=== PATIENT | male | born 1980 | race Caucasian/White ===

== ENCOUNTER 2018-10-04 02:54 | Emergency (ER) | payer OTHER, MEDICAID, SELFPAY ==
[2018-10-04 03:04] VITALS: BP 197/138; PULSE 104; RESP 20; TEMP 36.3; O2SAT 96
--- NOTE | 2018-10-04 03:37 | ED_ITS ---
HPI - URI/Sore Throat General Chief Complaint: Upper Respiratory Symptoms Stated Complaint: Swollen throat, headache Time Seen by Provider: 10/04/18 03:13 Source: patient and old records reviewed Mode of arrival: ambulatory Limitations: no limitations History of Present Illness HPI Narrative: Patient is a 38-year-old male with history of diabetes, hypertension and noncompliance presents with of throat swelling and pain. He was seen and evaluated at [facility] on 09/17/2018 where he was given a shot of Rocephin and Decadron for peritonsillar abscess. He also was given prescription for blood pressure and diabetes medication which he did not fill. He said his throat actually got better and till just today when the swelling got worse. It now hurts to swallow he is able to do so he does have a slightly muffled voice. He is noted to be quite hypertensive in the ED. He has no abdominal pain nausea vomiting. No fever. MD Complaint: sore throat Related Data Home Medications Medication Instructions Recorded Confirmed albuterol sulfate [Ventolin HFA] #0 12/14/16 acetaminophen 650 mg PO Q8HP PRN #0 12/16/16 Previous Rx's Medication Instructions Recorded lisinopril 20 mg PO QDAY #20 tab 12/14/16 metformin [Glucophage] 500 mg PO BIDCC #30 tab 12/14/16 pldnjnsriv-zqkarsnmztwoi-zuqe 0 tab PO Q4HP PRN #10 tab 12/16/16 albuterol sulfate 1 puff INHALATION Q4-6H PRN #8.5 10/04/18 gram amoxicillin-pot clavulanate 10 ml PO Q12H 10 Days #200 ml 10/04/18 lisinopril 20 mg PO DAILY #30 tab 10/04/18 metformin 500 mg PO BID #30 tab 10/04/18 prednisolone 45 mg PO DAILY #180 ml 10/04/18 Allergies Allergy/AdvReac Type Severity Reaction Status Date / Time No Known Allergies Allergy Uncoded 10/02/17 13:11 Review of Systems Review of Systems ROS Unobtainable: All systems reviewed & are unremarkable except as noted in HPI and below Constitutional Denies chills, Denies fever(s), Denies lethargy and Denies weakness ENT Ears, Nose, Mouth, and Throat: Reports as per HPI Cardiovascular Denies chest pain, Denies irregular heart rhythm, Denies lightheadedness, Denies palpitations, Denies dyspnea, Denies dyspnea on exertion and Denies orthopnea Respiratory Denies cough, Denies dyspnea, Denies dyspnea on exertion and Denies wheezing Gastrointestinal Gastrointestinal: Denies abdominal pain, Denies change in bowel habits, Denies diarrhea, Denies nausea and Denies vomiting Genitourinary Denies hematuria, Denies flank pain, Denies urinary incontinence and Denies urinary urgency Musculoskeletal Denies back pain, Denies muscle weakness, Denies numbness and Denies tingling Integumentary/Breasts Denies pruritus, Denies erythema, Denies rash and Denies wounds Neurologic Denies confusion, Denies numbness, Denies tingling and Denies weakness Psychiatric Denies anxiety, Denies confusion, Denies depression, Denies homicidal ideation and Denies suicidal ideation Endocrine Denies palpitations Allergic/Immunologic Denies wheezing [facility] Medical History Diabetes (Acute) Hypertension (Acute) Social History Smoking Status: Current every day smoker Social History Smoking Status: Current every day smoker Exam Initial Vital Signs Initial Vital Signs: Vital Signs Temperature 97.3 F L 10/04/18 03:04 Pulse Rate 104 H 10/04/18 03:04 Respiratory Rate 20 10/04/18 03:04 Blood Pressure 197/138 H 10/04/18 03:04 Pulse Oximetry 96 10/04/18 03:04 GENERAL: Disheveled overweight male no acute distress HEENT: Head atraumatic,EOMI, pupils reactive, neck is supple mild right-sided cervical lymphadenopathy PHARYNX: Erythematous with right sided swelling with right uvula deviation airway is patent managing own secretion, muffled voice no tonsillar exudate CARDIOVASCULAR: Regular rate and rhythm without murmurs, rubs or gallops. RESPIRATORY: Breath sounds equal bilaterally, no wheezes rales or rhonchi. ABDOMEN: Soft, nontender. Normoactive bowel sounds all 4 quadrants. No guarding or rebound. EXTREMITIES: Normal range of motion, no clubbing or edema. Neurovascularly intact NEUROLOGICAL: Alert and oriented x4.Normal gait and speech. Cranial nerves II through XII grossly intact. SKIN: Warm, dry, no laceration, no petechiae, no rashes or lesions. Procedures Abscess I/D Site: other (Right peritonsillar) Side (if applicable): right Local Anesthetic: lidocaine 1%, with epi and other anesthetic (Cetacaine) Amount of anesthesia used (mL): 2 Technique: needle aspiration Amount of fluid expressed (mL): 0 Irrigation: No Packing used?: none Complications: bleeding Course Orders Ordered: ED Orders 10/04/18 03:40 Complete Blood Count AUTO DIFF Stat Comprehensive Metabolic Panel Stat Lactate (Lactic Acid) Stat 10/04/18 03:57 Blood Culture Stat Discontinued Medications Dexamethasone (Decadron) 10 mg IV NOW ONE Stop: 10/04/18 03:19 Last Admin: 10/04/18 03:46 Dose: 10 mg Ampicillin Sodium/Sulbactam (Sodium 3 gm/ Sodium Chloride) 100 mls @ 100 mls/hr IV NOW ONE Stop: 10/04/18 03:19 Last Infusion: 10/04/18 05:41 Dose: 0 mls/hr Admin: 10/04/18 04:07 Dose: 100 mls/hr Sodium Chloride (Normal Saline 0.9%) 1,000 mls @ 1,000 mls/hr IV BOLUS ONE Stop: 10/04/18 04:17 Last Admin: 10/04/18 03:46 Dose: 1,000 mls/hr Lorazepam (Ativan) 0.5 mg IV NOW ONE Stop: 10/04/18 04:31 Last Admin: 10/04/18 04:35 Dose: 0.5 mg Vital Signs - 8 hr 10/04/18 03:04 Temperature 97.3 F L Pulse Rate 104 H Respiratory Rate 20 Blood Pressure 197/138 H Pulse Oximetry 96 MDM - URI/Sore Throat Lab Data Attestation: I reviewed the patient's lab results. Result diagrams: 10/04/18 03:40 10/04/18 03:40 Lab Results 10/04/18 10/04/18 10/04/18 Range/Units 03:40 03:40 03:40 WBC 17.0 H (4.5-11.0) X10^3/uL RBC 5.48 (4.5-5.9) X10^6/uL Hgb 16.1 (13.5-17.5) g/dL Hct 46.5 (41-53) % MCV 84.7 (80-100) fL MCH 29.4 (26-34) PG MCHC 34.7 (30-36) % RDW 12.9 (11.6-14.8) % Plt Count 378 (150-400) X10^3/uL Neut % (Auto) 78.7 H (50-75) % Lymph % (Auto) 12.2 L (25-40) % [place] % (Auto) 7.6 (3-14) % Eos % (Auto) 0.9 L (2-4) % Baso % (Auto) 0.6 (0-2) % Neut # (Auto) 91738 H (8263-0312) /uL Lymph # (Auto) 2100 (5546-7632) /uL [place] # (Auto) 1300 H (0-900) /uL Eos # (Auto) 200 (0-450) /uL Baso # (Auto) 100 (0-100) /uL Sodium 134 L (137-145) mmol/L Potassium 4.0 (3.4-5.1) mmol/L Chloride 98 (98-107) mmol/L Carbon Dioxide 28 (22-32) mmol/L BUN 15 (9-20) mg/dL Creatinine 0.60 L (0.66-1.25) mg/dL Estimated GFR > 60.0 (>60) mL/min BUN/Creatinine Ratio 25.0 H (6-22) Glucose 242 H (70-100) mg/dL Lactate 1.1 (0.7-2.1) mmol/L Calcium 9.6 (8.4-10.2) mg/dL Total Bilirubin 1.0 (0.2-1.3) mg/dL AST 19 (17-59) IU/L ALT 32 (21-72) IU/L Alkaline Phosphatase 114 (38-126) U/L Total Protein 7.8 (6.3-8.2) g/dL Albumin 4.5 (3.5-5.0) g/dL Globulin 3.3 (1.7-4.1) g/dL Albumin/Globulin Ratio 1.4 (1.0-2.8) MDM Narrative Medical decision making narrative: The patient had recurrent right peritonsillar abscess. He said it went away however it came back. Noncompliant with medications never picked up his antibiotics. Due to his noncompliance decision for at least attempt at peritonsillar I and D. patient did require some Ativan and he was quite nervous. Unfortunately unsuccessful peritonsillar drainage. The patient was sleeping without drooling or respiratory distress U 10 used to have muffled voice. I have discussed with him at significant length that he must fill and take his antibiotics. He says he cannot take pills he can only crushes them. I have given him liquid medications. Discussed very explicit warning signs and when to return to the ED. He understands he says that he will take his antibiotics he can get them they are free. Discharge Plan Departure Patient Disposition: Home Clinical Impression: Abscess, peritonsillar Instructions: Peritonsillar Abscess Activity Restrictions/Additional Instructions: YOU MUST TAKE HER ANTIBIOTICS *You have been diagnosed with peritonsillar abscess on right *What to do: You must fill and take her antibiotics increase fluids *Continue to take medications as directed Augmentin 800 mg twice a day (10mL) Prednisolone 45 mg once a day *Follow up with your primary care provider in 2-3 days, may need to see ENT to have abscess drain call them on Saturday *Return to ER if you should have return to ER immediately if you should have any difficulty breathing increased swelling, unable to swallow your own spit or any new, worsening or concerning symptoms Prescriptions: New amoxicillin-pot clavulanate 400-57 mg/5 mL suspension for reconstitution 10 ml PO Q12H 10 Days Qty: 200 RF: 0 prednisolone 15 mg/5 mL solution 45 mg PO DAILY Qty: 180 RF: 0 albuterol sulfate 90 mcg/actuation HFA aerosol inhaler 1 puff INHALATION Q4-6H PRN (Reason: shortness of breath) Qty: 8.5 RF: 0 metformin 500 mg tablet 500 mg PO BID Qty: 30 RF: 0 lisinopril 20 mg tablet 20 mg PO DAILY Qty: 30 RF: 0 No Action albuterol sulfate [Ventolin HFA] 90 MCG/PUFF HFA aerosol inhaler Qty: 0 RF: 0 metformin [Glucophage] 500 MG tablet 500 mg PO BIDCC Qty: 30 RF: 0 lisinopril 20 MG tablet 20 mg PO QDAY Qty: 20 RF: 0 acetaminophen 650 MG tablet extended release 650 mg PO Q8HP PRNQty: 0 RF: 0 [id number]-aoetaibhmwfvd-xihl 1 EACH tablet PO Q4HP PRNQty: 10 RF: 0 Referrals: Francisco Urbina MD [Physician] -
[2018-10-04 03:45] LABS: Add Manual Diff / Slide Review NO; Basophils Absolute Auto 100 /uL (0-100); Basophils Percent Auto 0.6 % (0-2); Eosinophils Absolute Auto 200 /uL (0-450); Eosinophils Percent Auto 0.9 % (2-4); Hematocrit 46.5 % (41-53); Hemoglobin 16.1 g/dL (13.5-17.5); Lymphocytes Absolute Auto 2100 /uL (1100-4500); Lymphocytes Percent Auto 12.2 % (25-40); Mean Corpuscular HGB Conc 34.7 % (30-36); Mean Corpuscular Hemoglobin 29.4 PG (26-34); Mean Corpuscular Volume 84.7 fL (80-100); Monocytes Absolute Auto 1300 /uL (0-900); Monocytes Percent Auto 7.6 % (3-14); Neutrophils Absolute Auto 13400 /uL (1500-7000); Neutrophils Percent Auto 78.7 % (50-75); Platelet Count 378 X10^3/uL (150-400); Red Blood Cell Count 5.48 X10^6/uL (4.5-5.9); Red Cell Distribution Width 12.9 % (11.6-14.8)
[2018-10-04] MEDS: DEXAMETHASONE 10 MG/ML VIAL IV (03:46)
[2018-10-04] MEDS: SODIUM CHLORIDE 0.9% 1,000 ML 1000 ML IV (03:46)
[2018-10-04 03:54] LABS: Lactate (Lactic Acid) 1.1 mmol/L (0.7-2.1)
[2018-10-04 03:55] LABS: Alanine Aminotransferase 32 IU/L (21-72); Albumin 4.5 g/dL (3.5-5.0); Albumin Globulin Ratio 1.4 (1.0-2.8); Alkaline Phosphatase 114 U/L (38-126); Aspartate Aminotransferase 19 IU/L (17-59); Blood Urea Nitrogen 15 mg/dL (9-20); Calcium 9.6 mg/dL (8.4-10.2); Carbon Dioxide 28 mmol/L (22-32); Chloride 98 mmol/L (98-107); Estimated Glomerular Filt Rate > 60.0 mL/min (>60); Globulin 3.3 g/dL (1.7-4.1); Glucose 242 mg/dL (70-100); HEMOLYSIS < 15 (0-50); Sodium 134 mmol/L (137-145); Total Protein 7.8 g/dL (6.3-8.2)
[2018-10-04] MEDS: AMPICILLIN/SULBACTAM 3 GM 3 GM in SODIUM CHLORIDE 0.9% 100 ML IV (04:07)
[2018-10-04] MEDS: LORazepam 2 MG/ML SYRINGE 0.5 MG IV (04:35)
[2018-10-04 06:08] VITALS: BP 174/131; PULSE 107; RESP 18; TEMP 37.1; O2SAT 98
--- NOTE | 2018-10-18 19:27 | PC.NURSE ---
Late Entry NS IV stop time 10/04/18 0500. Total volume infused 1000ml.
== END 2018-10-04 06:19 | disposition home or self-care (01) ==
PROVIDERS: Emergency Provider Emergency Medicine; Family Provider Family Medicine
DX: J36 Peritonsillar abscess (principal); R51 Headache
CPT/HCPCS: 36415; 36591; 42700; 80053; 83605; 85025; 87040; 96361; 96365; 96366; 96375; 99283; 99284; J0295; J1100; J2060

== ENCOUNTER 2022-03-12 16:48 | Emergency (ER) | payer OTHER, MEDICAID, SELFPAY ==
[2022-03-12 16:49] VITALS: BP 190/94; PULSE 99; RESP 18; TEMP 36.6; O2SAT 97
--- NOTE | 2022-03-12 17:27 | ED_ITS ---
HPI - Recheck/Abnormal Lab/Rx General Chief Complaint: Recheck/Abnormal Lab/Rx Stated Complaint: Out of diabetes medication not feeling well Time Seen by Provider: 03/12/22 17:24 Source: patient Mode of arrival: Ambulatory Limitations: no limitations History of Present Illness HPI narrative: Patient is a 41-year-old male. Is a diabetic and also hypertensive. Just recently established care with a new primary doctor but is yet to see this provider. He is currently out of his medications and is generally not feeling very well. The last time they were filled was at the walk-in clinic in [place]. He was told that he could not return there to get these medicines feel that he needed to do it from a primary provider so he came to this emergency department to have his medicine filled. Related Data Home Medications Medication Instructions Recorded Confirmed albuterol sulfate 90 mcg/actuation ##0 12/14/16 aerosol inhaler (Ventolin HFA) acetaminophen 650 mg 650 mg PO Q8HP PRN ##0 12/16/16 tablet,extended release Previous Rx's Medication Instructions Recorded lisinopril 20 mg tablet 20 mg PO QDAY #20 tabs 12/14/16 metformin 500 mg tablet 500 mg PO BIDCC #30 tabs 12/14/16 (Glucophage) zycubzfjep-hpiluacyinucx-gbjtvfaw 0 tab PO Q4HP PRN #10 tabs 12/16/16 50 mg-325 mg-40 mg tablet albuterol sulfate 90 mcg/actuation 1 puff inhalation Q4-6H PRN 10/04/18 aerosol inhaler shortness of breath #8.5 grams lisinopril 20 mg tablet 20 mg PO DAILY #30 tabs 10/04/18 metformin 500 mg tablet 500 mg PO BID #30 tabs 10/04/18 prednisolone 15 mg/5 mL oral 45 mg (15 mL) PO DAILY #180 mL 10/04/18 solution glimepiride 4 mg tablet 4 mg PO DAILY #30 tabs 03/12/22 lisinopril 20 mg tablet 20 mg PO DAILY #30 tabs 03/12/22 Allergies Allergy/AdvReac Type Severity Reaction Status Date / Time No Known Allergies Allergy Uncoded 10/02/17 13:11 Review of Systems Constitutional Comments: Generally not feeling well Cardiovascular Comments: No chest pain Respiratory Comments: No shortness of breath Gastrointestinal Comments: No abdominal pain Patient History Medical History (Updated 03/12/22 @ 17:36 by Elbert Krueger DO) Diabetes Hypertension Social History Smoking Status: Current every day smoker Smoking Status: Current every day smoker alcohol intake frequency: a few times a month Substance Use Type: marijuana Exam Initial Vital Signs Initial Vital Signs: Vital Signs Temperature 97.8 F 03/12/22 16:49 Pulse Rate 99 H 03/12/22 16:49 Respiratory Rate 18 03/12/22 16:49 Blood Pressure 190/94 H 03/12/22 16:49 Pulse Oximetry 97 03/12/22 16:49 Oxygen Delivery Method 03/12/22 16:49 Const General: cooperative and comfortable HENMT Head: normal to inspection and normocephalic Resp Effort & Inspection: normal respiratory effort Cardio Rate: regular rate Neuro General: patient alert, patient awake and moves all extremities Extrem General: normal to inspection Psych Appearance: grossly normal and well kempt Course Vital Signs Vital signs: Vital Signs - 8 hr 03/12/22 16:49 Temperature 97.8 F Pulse Rate 99 H Respiratory Rate 18 Blood Pressure 190/94 H Pulse Oximetry 97 Oxygen Delivery Method Room Air MDM - Recheck/Abnormal Lab/Rx MDM Narrative Medical decision making narrative: Patient feels his medications at [facility] in [place]. I contacted them to confirm the dose and the medications and I refilled them electronically sending them back to [facility]. Patient was informed that he does need to continue with following up with a primary doctor. He was given return precautions. He expressed understanding and agreement. Discharge Plan Departure Patient Disposition: Home Clinical Impression: Encounter for medication refill Activity Restrictions/Additional Instructions: A prescription for your lisinopril and Glimepiride was sent to [facility] in [place]. Please fill it and start taking it as directed. It is important that you continue to establish care with a primary doctor for further medication management. Prescriptions: New lisinopril 20 mg tablet 20 mg PO DAILY Qty: 30 3RF glimepiride 4 mg tablet 4 mg PO DAILY Qty: 30 3RF No Action albuterol sulfate [Ventolin HFA] 90 MCG/PUFF HFA aerosol inhaler Qty: 0 metformin [Glucophage] 500 MG tablet 500 mg PO BIDCC Qty: 30 0RF lisinopril 20 MG tablet 20 mg PO QDAY Qty: 20 0RF acetaminophen 650 MG tablet extended release 650 mg PO Q8HP PRNQty: 0 slyadcastt-wgnctsdnufcze-tajh 1 EACH tablet 0 tab PO Q4HP PRNQty: 10 0RF prednisolone 15 mg/5 mL solution 45 mg PO DAILY Qty: 180 0RF albuterol sulfate 90 mcg/actuation HFA aerosol inhaler 1 puff INHALATION Q4-6H PRN (Reason: shortness of breath) Qty: 8.5 0RF metformin 500 mg tablet 500 mg PO BID Qty: 30 0RF lisinopril 20 mg tablet 20 mg PO DAILY Qty: 30 0RF
== END 2022-03-12 17:45 | disposition home or self-care (01) ==
PROVIDERS: Emergency Provider Emergency Medicine
DX: Z76.0 Encounter for issue of repeat prescription (principal)
CPT/HCPCS: 99281

== ENCOUNTER → 2022-11-02 09:22 | Outpatient (CLI) | payer OTHER, MEDICAID, SELFPAY ==
[2022-11-02 10:57] LABS: Alanine Aminotransferase 32 IU/L (<50); Albumin 4.7 g/dL (3.5-5.0); Albumin Globulin Ratio 1.6 (1.0-2.8); Alkaline Phosphatase 87 U/L (38-126); Aspartate Aminotransferase 25 IU/L (17-59); BUN Creatinine Ratio 22.4 (6-22); Bilirubin Total 0.6 mg/dL (0.2-1.3); Blood Urea Nitrogen 19 mg/dL (9-20); Carbon Dioxide 28 mmol/L (22-32); Chloride 99 mmol/L (98-107); Cholesterol 221 mg/dL (140-199); Estimated Glomerular Filt Rate > 60 mL/min (>60); Glucose 228 mg/dL (70-100); HDL Cholesterol 41 mg/dL (40-60); HEMOLYSIS < 15 (0-50); LDL Cholesterol Calculated 138 mg/dL (<100); Potassium 4.4 mmol/L (3.4-5.1); Sodium 135 mmol/L (137-145); Total Protein 7.7 g/dL (6.3-8.2); Triglycerides 208 mg/dL (35-150)
[2022-11-02 14:09] LABS: Creatinine Urine Random 213.4 mg/dL
[2022-11-02 14:47] LABS: Microalbumi Creatinin Ratio Ur 201.9 ug/mg CR (<30); Microalbumin Urine Random 43.1 mg/dL (0-1.6)
== END ==
PROVIDERS: PCP Family Medicine; Referring Provider Family Medicine; Visit Provider Family Medicine
DX: E11.9 Type 2 diabetes mellitus without complications (principal); I10 Essential (primary) hypertension
CPT/HCPCS: 36415; 80053; 80061; 82043; 82570

== ENCOUNTER → 2023-01-21 14:04 | Outpatient (CLI) | payer OTHER, MEDICAID, SELFPAY ==
[2023-01-22 02:57] LABS: x Labcorp Estim. Avg Glu (eAG) 186 mg/dL (.); x Labcorp Hemoglobin A1c 8.1 % (4.8-5.6)
== END ==
PROVIDERS: PCP Family Medicine; Referring Provider Family Medicine; Visit Provider Family Medicine
DX: E11.65 Type 2 diabetes mellitus with hyperglycemia (principal); Z79.4 Long term (current) use of insulin
CPT/HCPCS: 36415; 83036

== ENCOUNTER → 2023-04-22 15:40 | Outpatient (CLI) | payer OTHER, MEDICAID, SELFPAY ==
[2023-04-22 18:28] LABS: BUN Creatinine Ratio 24.7 (6-22); Blood Urea Nitrogen 19 mg/dL (9-20); Calcium 10.1 mg/dL (8.4-10.2); Carbon Dioxide 28 mmol/L (22-32); Chloride 97 mmol/L (98-107); Estimated Glomerular Filt Rate > 60 mL/min (>60); Glucose 192 mg/dL (70-100); HEMOLYSIS 32 (0-50); Potassium 4.1 mmol/L (3.4-5.1); Sodium 134 mmol/L (137-145)
[2023-04-22 18:31] LABS: Hemoglobin A1C% w Est Avg Glu 8.2 % (4.0-6.0)
== END ==
PROVIDERS: PCP Family Medicine; Referring Provider Family Medicine; Visit Provider Family Medicine
DX: E11.65 Type 2 diabetes mellitus with hyperglycemia (principal); Z79.4 Long term (current) use of insulin; I10 Essential (primary) hypertension
CPT/HCPCS: 36415; 80048; 83036

== ENCOUNTER → 2023-10-23 13:49 | Outpatient (CLI) | payer OTHER, MEDICAID, SELFPAY ==
--- NOTE | 2023-11-15 08:10 | DIAB.INIT ---
Initial Diabetes Education Assessment Name: Jesu Lopez Date: 10/23/23 Time: 205-3p Dx: T2DM [place] presents for initial Dm visit. Dx 2 years ago. H/o wounds. Lives with landlord and two other tenants. He cooks low Na, less red meat and lower CHO. H/o CGM use last summer. Interested in CGM again. Diet recall: 630-830a: eggs, sausage, 1 toast or 1c potatoes, coffee with stevia 12-1p: sandwich on one bread slice Or veg, chx with 3/4c Rice sn: nothing or 10 crackers with cheese dip 7-10p: 2c mac n cheese with sausage and jalepenos OR protein with veggies +/- corn, if rice or potato portion is 3/4c sn: rare ice cream 40oz water, 1/2 gallon crystal light, rare mix drink with diet soda Physical Activity: active at work, no intentional program Self-Monitoring Blood Glucose: Checks 3x or more. FBG and sometimes pre meal. FBG often 190s. pre meal lunch often 130-140 (up to 210 if less active) and pre dinner 180s. 1 hypo event ever. Took Novolog with Lantus and did nto eat right away. Treated with maegan pretzels, BG of 60-70mgdl. Diabetes Medications: 34u Lantus 0-10u Novolog (10u at breakfast and dinner, sometimes 0 at lunch) Glimepiride 4mg Pertinent Labs: HgA1c: 9.7% 10/2022 8.1% 12/2022 8.2% 03/2023 Past Medical History: (Last Updated 09/09/23 @ 10:58 by Kenna Gomes DO) Asthma Benign essential HTN Diabetes Diabetic retinopathy Hypertension Peripheral sensory neuropathy due to type 2 diabetes mellitus Stasis dermatitis Tobacco dependence Type 2 diabetes mellitus with hyperglycemia, with long-term current use of insulin Intervention: This participant was very receptive. Provided appropriate educational handouts. Discussed the following topics: Completed intake assessment. Discussed barriers to care. Hypo s/s and tx with Rule of 15 Insulin titration schedule BG goals Physical activity impact on BG Brief nutrition recs CGM acquisition-- RD will message PCP and provide FSL3 paperwork for [place] + [employer]man per pt req Created SMART goals for patient self-care and success. Goals: Follow titration schedule discussed- new Message RD by BG Practice Rule of 15 (keep low supplies by bedside) Consider a phys activity program Follow-up: YENI MONTES follow-up in 2-3 weeks Pina Dhillon RDN, SIMON Certified Diabetes Care and Sales Support Technician P: [phone] Thank you for this referral
== END ==
PROVIDERS: PCP Family Medicine; Referring Provider Family Medicine
DX: E11.65 Type 2 diabetes mellitus with hyperglycemia (principal); Z79.84 Long term (current) use of oral hypoglycemic drugs; Z79.4 Long term (current) use of insulin; Z71.3 Dietary counseling and surveillance; I10 Essential (primary) hypertension; E11.42 Type 2 diabetes mellitus with diabetic polyneuropathy; F17.200 Nicotine dependence, unspecified, uncomplicated
CPT/HCPCS: G0108

== ENCOUNTER → 2024-09-26 11:50 | Outpatient (CLI) | payer OTHER, MEDICAID, SELFPAY ==
[2024-09-26 12:27] LABS: BUN Creatinine Ratio 23.3 (6-22); Blood Urea Nitrogen 31 mg/dL (9-20); Calcium 10.4 mg/dL (8.4-10.2); Carbon Dioxide 26 mmol/L (22-32); Chloride 101 mmol/L (98-107); Cholesterol 163 mg/dL (140-199); Estimated Glomerular Filt Rate > 60 mL/min (>60); Glucose 182 mg/dL (70-100); HDL Cholesterol 37 mg/dL (40-60); HEMOLYSIS < 15 (0-50); Hemoglobin A1C% w Est Avg Glu 7.8 % (4.0-6.0); LDL Cholesterol Calculated 57 mg/dL (<100); Potassium 4.5 mmol/L (3.4-5.1); Sodium 136 mmol/L (137-145); Triglycerides 346 mg/dL (35-150)
== END ==
PROVIDERS: PCP Family Medicine; Referring Provider Family Medicine; Visit Provider Family Medicine
DX: E11.65 Type 2 diabetes mellitus with hyperglycemia (principal); Z79.4 Long term (current) use of insulin; E11.42 Type 2 diabetes mellitus with diabetic polyneuropathy; E11.29 Type 2 diabetes mellitus with other diabetic kidney complication; R80.9 Proteinuria, unspecified; E78.2 Mixed hyperlipidemia; I10 Essential (primary) hypertension
CPT/HCPCS: 36415; 80048; 80061; 83036

== ENCOUNTER → 2025-01-08 11:53 | Outpatient (CLI) | payer OTHER, SELFPAY ==
[2025-01-08 13:11] LABS: Hemoglobin A1C% w Est Avg Glu 8.7 % (4.0-6.0)
[2025-01-08 13:31] LABS: Blood Urea Nitrogen 22 mg/dL (9-20); Calcium 9.9 mg/dL (8.4-10.2); Carbon Dioxide 30 mmol/L (22-32); Chloride 96 mmol/L (98-107); Estimated Glomerular Filt Rate > 60 mL/min (>60); Glucose 220 mg/dL (70-99); HEMOLYSIS < 15 (0-50); Potassium 4.7 mmol/L (3.4-5.1); Sodium 134 mmol/L (137-145)
[2025-01-09 15:20] LABS: HIV 1 & 2 Ab/Ag 4th Gen Combo NEGATIVE (NEGATIVE); Hep C Virus Ab w/Reflex Quant NEGATIVE s/c (NEGATIVE)
== END ==
PROVIDERS: PCP Family Medicine; Referring Provider Family Medicine; Visit Provider Family Medicine
DX: E11.29 Type 2 diabetes mellitus with other diabetic kidney complication (principal); E11.65 Type 2 diabetes mellitus with hyperglycemia; R80.9 Proteinuria, unspecified; I10 Essential (primary) hypertension; Z79.4 Long term (current) use of insulin
CPT/HCPCS: 36415; 80048; 83036; 86803; 87389

== ENCOUNTER → 2025-04-07 14:30 | Outpatient (CLI) | payer OTHER, SELFPAY ==
[2025-04-07 14:56] LABS: Hemoglobin A1C% w Est Avg Glu 9.5 % (4.0-6.0)
[2025-04-07 15:30] LABS: Blood Urea Nitrogen 22 mg/dL (9-20); Calcium 9.3 mg/dL (8.4-10.2); Carbon Dioxide 28 mmol/L (22-32); Chloride 99 mmol/L (98-107); Estimated Glomerular Filt Rate > 60 mL/min (>60); Glucose 282 mg/dL (70-99); HEMOLYSIS < 15 (0-50); Potassium 4.3 mmol/L (3.4-5.1); Sodium 135 mmol/L (137-145)
== END ==
PROVIDERS: PCP Family Medicine; Referring Provider Family Medicine; Visit Provider Family Medicine
DX: E11.65 Type 2 diabetes mellitus with hyperglycemia (principal); Z79.4 Long term (current) use of insulin; I10 Essential (primary) hypertension
CPT/HCPCS: 36415; 80048; 83036